=== PATIENT | female | born 1935 | race Caucasian/White ===

== ENCOUNTER 2020-12-10 02:34 | Inpatient (IN) | payer MEDICARE, OTHER ==
[~2020-12-10] VITALS: Ht 152.4 cm; Wt 77.3 kg
[2020-12-10 04:00] VITALS: BP 133/61
[2020-12-10 05:49] VITALS: BP 133/61
[2020-12-10] MEDS ORDERED: MAGNESIUM HYDROXIDE 30 ML UDC PO PRN (06:00)
[2020-12-10] MEDS ORDERED: ACETAMINOPHEN 325 MG TABLET PO PRN (06:00)
[2020-12-10] MEDS ORDERED: MAG HYDROX/AL HYDROX/SIMETH 30 ML UDC PO PRN (06:00)
[2020-12-10] MEDS ORDERED: HYDROCODONE/APAP 5/325MG TABLET PO PRN (06:00)
[2020-12-10] MEDS ORDERED: ONDANSETRON HCL/PF 4 MG/2 ML VIAL IVP PRN (06:00)
[2020-12-10] MEDS ORDERED: ZOLPIDEM TARTRATE 5 MG TABLET PO PRN (06:00)
[2020-12-10] MEDS ORDERED: MORPHINE SULFATE INJ 2 MG/ML DISP.SYRIN IV PRN (06:00)
[2020-12-10] MEDS ORDERED: Z GUARD REMEDY 2 OZ OINT TP PRN (06:00)
[2020-12-10] MEDS ORDERED: PANT40TA2 PO (06:15)
[2020-12-10] MEDS ORDERED: FURO20TA4 PO (06:15)
[2020-12-10] MEDS ORDERED: FERR325T30 PO (06:15)
[2020-12-10] MEDS ORDERED: HYDR10SY16 PO (06:15)
[2020-12-10] MEDS ORDERED: CARV25TA2 PO (06:15)
[2020-12-10] MEDS ORDERED: SEVE800T8 PO (06:15)
[2020-12-10] MEDS ORDERED: VIT1TABL46 PO (06:15)
[2020-12-10] MEDS ORDERED: AMLO-212 PO (06:15)
[2020-12-10] MEDS ORDERED: ATOR20TA PO (06:15)
[2020-12-10 06:54] LABS: BASOPHILS # (AUTO) 0.1 /CMM (0.0-0.2); BASOPHILS % (AUTO) 0.8 % (0.0-2.0); EOSINOPHILS % (AUTO) 1.6 % (0.0-6.0); HEMATOCRIT 30 % (33-45); HEMOGLOBIN 9.5 g/dL (11.5-14.8); LYMPHOCYTES # (AUTO) 0.9 /CMM (0.8-4.8); LYMPHOCYTES % (AUTO) 9.4 % (20.0-44.0); MEAN CORPUSCULAR HGB CONC 32 g/dl (31.0-36.0); MEAN CORPUSCULAR VOLUME 73 fL (82-100); MONOCYTES # (AUTO) 0.5 /CMM (0.1-1.30); MONOCYTES % (AUTO) 5.8 % (2.0-12.0); NEUTROPHILS # (AUTO) 7.7 /CMM (1.8-8.9); NEUTROPHILS % (AUTO) 82.4 % (43.0-81.0); PLATELET COUNT (AUTO) 131 /CMM (150-450); RED BLOOD CELL COUNT(AUTO) 4.08 MIL/uL (4.0-5.2); WHITE BLOOD COUNT (AUTO) 9.4 K/uL (4.3-11.0)
--- NOTE | 2020-12-10 06:55 | NUR ---
MS/TELE/RN RECEIVED PATIENT AT AROUND 044O BY AMBULANCE FROM [facility]. PATIENT WAS AWAKE, ALERT, ORIENTED, COMFORTABLE, NO C/O PAIN, NO DISTRESS NOTED, MADE COMFORTABLE IN BED, UNABLE TO OBTAIN INFORMATIONS FROM THE PATIENT DUE TO LANGUAGE BARRIER, PATIENT SPEAKS GHANAIAN ONLY. SON, SANTO, CALLED AROUND 0530, SOME INFORMATIONS WERE OBTAINED FROM THE SON. FALL PRECAUTIONS IMPLEMENTED PER PROTOCOL, PLACED CALL LIGHT WITHIN REACH. PATIENT IS SLEEPING AT THIS TIME, NO SIGNS OF DISTRESS NOTED, CALL NEEDS ATTENDED, WILL CONTINUE TO MONITOR.
[2020-12-10 07:30] LABS: CALCIUM, SERUM 8.8 mg/dL (8.5-10.1); CARBON DIOXIDE 23 mmol/L (21-32); CHLORIDE 106 mmol/L (98-107); CHOLESTEROL 133 mg/dL (<200); GLUCOSE 88 mg/dL (74-106); HDL CHOLESTEROL 73 mg/dL (40-60); LDL 54 mg/dL (0-99); POTASSIUM 4.7 mmol/L (3.5-5.1); SODIUM SERUM 139 mmol/L (136-145); TRIGLYCERIDES 115 mg/dL (30-150); UREA NITROGEN, BLOOD 54 mg/dL (7-18)
--- NOTE | 2020-12-10 07:30 | NUR ---
RN NOTES PATIENT IS IN BED A/O X 4 WITH NO SIGNS OF DISTRESS ON 2L OF NASAL CANNULA. IV L FA SL AND IV R FA SL. ON TELE MONITOR ON READING SR WITH PVC'S. DENIES CHEST PAIN. SAFETY MEASURES ARE APPLIED, CALL LIGHT WITHIN REACH, WILL CONTINUE TO MONITOR.
[2020-12-10 07:42] LABS: ALANINE AMINOTRANSFERASE 14 U/L (12-78); ALBUMIN 2.8 g/dL (3.4-5.0); ALKALINE PHOSPHATASE 53 U/L (46-116); ASPARTATE AMINOTRANSFERASE 19 U/L (15-37); B-TYPE NATRIURETIC PEPTIDE 3608 PG/ML (0-125); BILIRUBIN,TOTAL 0.5 mg/dL (0.2-1.0); MAGNESIUM 2.1 mg/dL (1.8-2.4); PHOSPHORUS 5.6 mg/dL (2.5-4.9); TOTAL PROTEIN, SERUM 6.6 g/dL (6.4-8.2)
[2020-12-10 08:00] VITALS: BP 140/69
[2020-12-10] MEDS: CARVEDILOL 12.5 MG TABLET PO SCH ×2 (11:34→21:15)
[2020-12-10] MEDS: SEVELAMER CARBONATE 800 MG TABLET PO SCH ×2 (13:04→16:52)
[2020-12-10 16:00] VITALS: BP 146/62
[2020-12-10 16:48] LABS: CREATININE, URINE 36.5 MG/DL (30.0-125.0); URINE TOTAL PROTEIN 255.5 mg/dL (0-11.9)
[2020-12-10] MEDS: FERROUS SULFATE (325 MG) 325 MG/TAB TABLET PO SCH (16:52)
[2020-12-10 17:18] LABS: BILIRUBIN,URINE NEGATIVE (NEGATIVE); COLOR,URINE YELLOW (YELLOW); LEUKOCYTE ESTERASE ,URINE NEGATIVE (NEGATIVE); NITRITE, URINE NEGATIVE (NEGATIVE); PROTEIN,URINE >=300 mg/dl (NEGATIVE); UGLUCOSE NEGATIVE (NEGATIVE); UROBILINOGEN,URINE 0.2 EU/dL (0.2)
[2020-12-10 17:24] LABS: BACTERIA,URINE 1+ /HPF (None Seen)
[2020-12-10 17:25] LABS: MUCUS,URINE Few /LPF (None Seen)
[2020-12-10 18:04] LABS: EOSINOPHIL,URINE None Seen
--- NOTE | 2020-12-10 18:53 | NUR ---
RN NOTES PATIENT IS IN BED A/O X 4 WITH NO SIGNS OF DISTRESS ON 2L OF NASAL CANNULA. IV L FA SL AND IV R FA SL. ON TELE MONITOR ON READING SR WITH PVC'S. DENIES CHEST PAIN. SAFETY MEASURES ARE APPLIED, CALL LIGHT WITHIN REACH, ALL TREATMENTS AND CARE WAS PERFORMED ANTICIPATED, WILL ENDORSE TO THE NEXT RIPSAW OPERATOR NURSE.
--- NOTE | 2020-12-10 19:10 | NUR ---
PHYSICIAN GYNECOLOGIST OPENING NOTES: RECEIVED PATIENT IN BED, AWAKE, A/O X3. NO S/S OF DISTRESS NOTED. BED ALARM ON. BED IN LOWEST AND LOCKED POSITION. CALL LIGHT WITHIN REACH. O2 AT 2L/MIN NASAL CANNULA. PATIENT REFUSED THE DVT PUMPS.
--- NOTE | 2020-12-10 19:54 | NUR ---
A FAMILY MEMBER AT THE BEDSIDE.
[2020-12-10 20:00] VITALS: BP 129/61
[2020-12-10] MEDS: ATORVASTATIN 10 MG TABLET PO SCH (21:15)
[2020-12-11] VITALS: BP 135/61
[2020-12-11 04:00] VITALS: BP 155/55
[2020-12-11 05:55] LABS: BASOPHILS # (AUTO) 0.1 /CMM (0.0-0.2); BASOPHILS % (AUTO) 1.1 % (0.0-2.0); EOSINOPHILS % (AUTO) 1.8 % (0.0-6.0); HEMATOCRIT 28 % (33-45); LYMPHOCYTES % (AUTO) 13.2 % (20.0-44.0); MEAN CORPUSCULAR HGB CONC 32 g/dl (31.0-36.0); MEAN CORPUSCULAR VOLUME 73 fL (82-100); MONOCYTES # (AUTO) 0.6 /CMM (0.1-1.30); MONOCYTES % (AUTO) 7.2 % (2.0-12.0); NEUTROPHILS % (AUTO) 76.7 % (43.0-81.0); PLATELET COUNT (AUTO) 115 /CMM (150-450); RED BLOOD CELL COUNT(AUTO) 3.86 MIL/uL (4.0-5.2); WHITE BLOOD COUNT (AUTO) 7.8 K/uL (4.3-11.0)
[2020-12-11 06:14] LABS: CALCIUM, SERUM 8.1 mg/dL (8.5-10.1); CARBON DIOXIDE 25 mmol/L (21-32); CHLORIDE 108 mmol/L (98-107); CREATININE 3.8 mg/dL (0.6-1.3); GLUCOSE 80 mg/dL (74-106); PHOSPHORUS 5.7 mg/dL (2.5-4.9); POTASSIUM 4.5 mmol/L (3.5-5.1); SODIUM SERUM 141 mmol/L (136-145); UREA NITROGEN, BLOOD 52 mg/dL (7-18)
--- NOTE | 2020-12-11 07:15 | NUR ---
CERTIFIED NURSE OPERATING ROOM OPENING NOTE RECEIVED PATIENT IN BED. A/O X4. KYRGYZ SPEAKING. AMBULATORY WITH STANDBY ASSIST. NC ON 2 LPM. NO SOB NOTED. IN NO APPARENT DISTRESS. DENIES ANY PAIN OR DISCOMFORT AT THIS TIME. IV ACCESS ON L FA #20 G AND R FA #20 G, INTACT. SAFETY MEASURES MAINTAINED. BED IN LOWEST POSITION, BRAKES LOCKED. SIDE RAILS UP X2. CALL LIGHT WITHIN REACH. WILL CONTINUE PLAN OF CARE.
--- NOTE | 2020-12-11 07:46 | NUR ---
WOUND CARE CONSULT: PT PRESENTS WITH INTACT SKIN AND IS ABLE TO REPOSITION IN BED. PT IS CONTINENT. WILL SEE PRN.
[2020-12-11 08:14] VITALS: BP 117/67
[2020-12-11] MEDS: FERROUS SULFATE (325 MG) 325 MG/TAB TABLET PO SCH ×2 (08:14→16:11)
[2020-12-11] MEDS: SEVELAMER CARBONATE 800 MG TABLET PO SCH ×3 (08:14→16:11)
[2020-12-11] MEDS: AMLODIPINE BESYLATE 5 MG TABLET PO SCH (08:14)
[2020-12-11] MEDS: VIT B CMPLX 3/FA/VIT C/BIOTIN 1 TAB TABLET PO SCH (08:14)
[2020-12-11] MEDS: CARVEDILOL 12.5 MG TABLET PO SCH ×2 (08:14→20:19)
[2020-12-11 08:59] LABS: IRON, SERUM 42 ug/dl (50-175); TOTAL IRON BINDING CAPACITY 176 ug/dl (250-450)
[2020-12-11 09:11] LABS: FERRITIN 432 ng/mL (8-388)
[2020-12-11] MEDS ORDERED: BUMETANIDE INJ 6 MG in IV NS 0.9% 36 ML IV ONE (09:30)
[2020-12-11 12:00] VITALS: BP 148/57
[2020-12-11 16:26] VITALS: BP 151/61
--- NOTE | 2020-12-11 18:09 | NUR ---
ZONE MANAGER CLOSING NOTE PATIENT RESTING IN BED. A/O X4. AMBULATORY WITH STANDBY ASSIST. NC ON 2 LPM. NO SOB NOTED. IN NO APPARENT DISTRESS. DENIES ANY PAIN OR DISCOMFORT AT THIS TIME. IV ACCESS ON L FA #20 G AND R FA #20 G, INTACT. ABLE TO MAKE NEEDS KNOWN. ALL DUE MEDS GIVEN ORDERED. SAFETY MEASURES MAINTAINED. BED IN LOWEST POSITION, BRAKES LOCKED. SIDE RAILS UP X2. CALL LIGHT WITHIN REACH. WILL ENDORSE CONTINUITY OF CARE TO ONCOMING SHIFT.
--- NOTE | 2020-12-11 19:15 | NUR ---
MEDICAL PRACTICE ADMINISTRATOR OPENING NOTES: RECEIVED PATIENT IN BED, AWAKE, A/O X4. NO S/S OF DISTRESS NOTED. NO COMPLAIN OF PAIN. CALL LIGHT WITHIN REACH. BED ALARM ON. BED IN LOWEST AND LOCKED POSITION. DVT PUMPS REFUSED, EXPLAINED TO THE PATIENT THE IMPORTANCE OF IT, STILL DECLINED.
[2020-12-11 20:00] VITALS: BP 152/65
[2020-12-11] MEDS: ATORVASTATIN 10 MG TABLET PO SCH (20:19)
[2020-12-12] VITALS: BP 156/58
[2020-12-12 04:00] VITALS: BP 145/51
--- NOTE | 2020-12-12 07:44 | NUR ---
MS/RN NOTE RECEIVED REPORT FROM RETIREMENT PLAN COUNSELOR NURSE. PATIENT SEEN LAYING IN HOSPITAL BED. A/O X4, SIERRA LEONEAN/BAHRAINI SPEAKING. NO ACUTE DISTRESS NOTED. PATIENT ON 2L OXYGEN VIA NASAL CANNULA, TOLERATING WELL, NO SOB NOTED, BREATHING EVEN NON LABORED. ALL SAFETY MEASURES IN PLACE, BED LOCKED AND IN LOWEST POSITION, CALL LIGHT WITHIN REACH. WILL CONTINUE TO MONITOR AND ENSURE SAFETY.
[2020-12-12 08:00] VITALS: BP 138/50
[2020-12-12 09:10] VITALS: BP 138/50
[2020-12-12] MEDS: AMLODIPINE BESYLATE 5 MG TABLET PO SCH (09:10)
[2020-12-12] MEDS: SEVELAMER CARBONATE 800 MG TABLET PO SCH (09:10)
[2020-12-12] MEDS: VIT B CMPLX 3/FA/VIT C/BIOTIN 1 TAB TABLET PO SCH (09:10)
[2020-12-12] MEDS: FERROUS SULFATE (325 MG) 325 MG/TAB TABLET PO SCH (09:10)
[2020-12-12] MEDS: CARVEDILOL 12.5 MG TABLET PO SCH (09:10)
[2020-12-12 09:30] LABS: BASOPHILS # (AUTO) 0.1 /CMM (0.0-0.2); BASOPHILS % (AUTO) 1.3 % (0.0-2.0); EOSINOPHILS % (AUTO) 1.9 % (0.0-6.0); HEMATOCRIT 27 % (33-45); HEMOGLOBIN 8.5 g/dL (11.5-14.8); LYMPHOCYTES # (AUTO) 0.9 /CMM (0.8-4.8); LYMPHOCYTES % (AUTO) 12.2 % (20.0-44.0); MEAN CORPUSCULAR HGB CONC 32 g/dl (31.0-36.0); MEAN CORPUSCULAR VOLUME 73 fL (82-100); MONOCYTES # (AUTO) 0.4 /CMM (0.1-1.30); NEUTROPHILS # (AUTO) 5.5 /CMM (1.8-8.9); NEUTROPHILS % (AUTO) 78.6 % (43.0-81.0); PLATELET COUNT (AUTO) 123 /CMM (150-450); RED BLOOD CELL COUNT(AUTO) 3.72 MIL/uL (4.0-5.2)
[2020-12-12 09:34] LABS: ABG OXYGEN SATURATION 93.2 % (92.0-98.5); ABG PCO2 44.8 mmHg (35.0-45.0); ABG PH 7.326 (7.350-7.450); ABG PO2 73.2 mmHg (75.0-100.0); AaDO2 22.9 mmHg; MetHb 0.7 % (0.0-1.5); O2Hb 92.5 % (94.0-97.0); SITE, ABG Right Radial; VENT MODE, BG room air
[2020-12-12 10:14] LABS: ALANINE AMINOTRANSFERASE 16 U/L (12-78); ALBUMIN 2.5 g/dL (3.4-5.0); ALKALINE PHOSPHATASE 52 U/L (46-116); ASPARTATE AMINOTRANSFERASE 14 U/L (15-37); BILIRUBIN,TOTAL 0.4 mg/dL (0.2-1.0); CALCIUM, SERUM 7.8 mg/dL (8.5-10.1); CARBON DIOXIDE 26 mmol/L (21-32); CHLORIDE 109 mmol/L (98-107); CREATININE 3.9 mg/dL (0.6-1.3); GLUCOSE 128 mg/dL (74-106); MAGNESIUM 1.7 mg/dL (1.8-2.4); PHOSPHORUS 5.3 mg/dL (2.5-4.9); POTASSIUM 3.7 mmol/L (3.5-5.1); SODIUM SERUM 144 mmol/L (136-145); UREA NITROGEN, BLOOD 54 mg/dL (7-18)
[2020-12-12] MEDS ORDERED: BUMETANIDE INJ 8 MG in IV NS 0.9% 48 ML IV ONE (10:30)
--- NOTE | 2020-12-12 12:40 | NUR ---
MS/RN DISCHARGED PATIENT WAS DISCHARGED TO HOME IN MEDICALLY STABLE CONDITION. NAME BAND AND IV (2) REMOVED, APPLIED PRESSURE DRESSING. ALL PERSONAL BELONGINGS ACCOUNTED AND SIGNED OFF FOR IN BELONGINGS LIST. EDUCATED PATIENT AND FAMILY MEMBER, GRANDSON SLOANE, OF EXIT CARE/DISCHARGE INSTRUCTIONS. COPY OF EXIT CARE/DISCHARGE PAPER WORK GIVEN TO PATIENT. PATIENT LEFT UNIT FLOOR VIA WHEELCHAIR TAKEN TO ENTRANCE BY CLOTH PACKER AND GRANDSON. PATIENT LEFT IN MEDICALLY STABLE CONDITION.
== END 2020-12-12 12:40 | disposition home or self-care (01) | DRG 302 ==
LOC: TELE 04:33
PROVIDERS: ADMIT Internal Medicine; ATTEND Internal Medicine
DX: I25.110 Atherosclerotic heart disease of native coronary artery with unstable angina pectoris (principal); I50.33 Acute on chronic diastolic (congestive) heart failure; N17.0 Acute kidney failure with tubular necrosis; J96.01 Acute respiratory failure with hypoxia; I13.0 Hypertensive heart and chronic kidney disease with heart failure and stage 1 through stage 4 chronic kidney disease, or unspecified chronic kidney disease; N10 Acute pyelonephritis; E78.00 Pure hypercholesterolemia, unspecified; E78.5 Hyperlipidemia, unspecified; N18.9 Chronic kidney disease, unspecified; D63.1 Anemia in chronic kidney disease; Z95.2 Presence of prosthetic heart valve; N28.1 Cyst of kidney, acquired; Z95.5 Presence of coronary angioplasty implant and graft; Z20.822 Contact with and (suspected) exposure to COVID-19
CPT/HCPCS: 36415; 36600; 71045-TC; 76770-TC; 80048-TC; 80053-TC; 80061-TC; 81001; 82570-TC; 82728-TC; 82803-TC; 83540-TC; 83735-TC; 83880; 84100-TC; 84155-TC; 84300-TC; 84484-TC; 85025-TC; 85730-TC; 87081-TC; 93307-TC; G0378; J3490; J7050

== ENCOUNTER 2021-01-05 20:21 | Inpatient (IN) | payer MEDICARE, OTHER ==
[~2021-01-05] VITALS: Ht 157.5 cm; Wt 60.8 kg
[~2021-01-05 20:21] MED LIST: AMLO-212 PO; ATOR20TA PO; CARV25TA2 PO; FERR325T30 PO; FURO20TA4 PO; HYDR10SY16 PO; PANT40TA2 PO; SEVE800T8 PO; VIT1TABL46 PO
--- NOTE | 2021-01-05 20:33 | NUR ---
BIBRA 82 C/O "SOB" HX PULMONARY EDEMA, ON ARRIVAL NOTED EPISODE OF COFEE GROUND EMESIS
[2021-01-05] MEDS ORDERED: ONDANSETRON HCL/PF 4 MG/2 ML VIAL ONE (20:37)
[2021-01-05] MEDS ORDERED: EZET10TA6 PO (20:39)
--- NOTE | 2021-01-05 20:43 | NUR ---
TECH AT BEDSIDE FOR US
--- NOTE | 2021-01-05 20:47 | NUR ---
COVID SWAB COLLECTED AND SENT TO LAB
[2021-01-05] MEDS ORDERED: ONDANSETRON HCL/PF - ER 4 MG/2 ML VIAL IV ONE (21:00)
--- NOTE | 2021-01-05 21:17 | NUR ---
SANTO (SON) [phone] NATI PETIT [phone]
--- NOTE | 2021-01-05 21:20 | NUR ---
CALL FROM LAB, RAPID COVID NEGATIVE.
[2021-01-05 21:28] LABS: BASOPHILS # (AUTO) 0.1 /CMM (0.0-0.2); EOSINOPHILS % (AUTO) 1.2 % (0.0-6.0); HEMATOCRIT 25 % (33-45); HEMOGLOBIN 7.8 g/dL (11.5-14.8); LYMPHOCYTES # (AUTO) 0.9 /CMM (0.8-4.8); LYMPHOCYTES % (AUTO) 9.2 % (20.0-44.0); MEAN CORPUSCULAR HGB CONC 31 g/dl (31.0-36.0); MEAN CORPUSCULAR VOLUME 71 fL (82-100); MONOCYTES # (AUTO) 0.7 /CMM (0.1-1.30); NEUTROPHILS % (AUTO) 81.6 % (43.0-81.0); PLATELET COUNT (AUTO) 119 /CMM (150-450); RED BLOOD CELL COUNT(AUTO) 3.49 MIL/uL (4.0-5.2); WHITE BLOOD COUNT (AUTO) 9.8 K/uL (4.3-11.0)
[2021-01-05 21:41] LABS: CALCIUM, SERUM 8.2 mg/dL (8.5-10.1); CARBON DIOXIDE 19 mmol/L (21-32); CHLORIDE 110 mmol/L (98-107); CREATININE 3.9 mg/dL (0.6-1.3); GLUCOSE 153 mg/dL (74-106); POTASSIUM 4.9 mmol/L (3.5-5.1); SODIUM SERUM 141 mmol/L (136-145); UREA NITROGEN, BLOOD 66 mg/dL (7-18)
[2021-01-05 21:53] LABS: ALANINE AMINOTRANSFERASE 19 U/L (12-78); ALKALINE PHOSPHATASE 62 U/L (46-116); ASPARTATE AMINOTRANSFERASE 16 U/L (15-37); B-TYPE NATRIURETIC PEPTIDE 4683 PG/ML (0-125); BILIRUBIN,DIRECT 0.2 mg/dL (0.0-0.2); BILIRUBIN,TOTAL 0.6 mg/dL (0.2-1.0); TOTAL PROTEIN, SERUM 6.8 g/dL (6.4-8.2)
[2021-01-05] MEDS ORDERED: FUROSEMIDE 40 MG/4 ML VIAL IV ONE (22:00)
[2021-01-05] MEDS: FUROSEMIDE 40 MG/4 ML VIAL IV ONE ×2 (22:18→22:19)
--- NOTE | 2021-01-05 22:19 | NUR ---
PT ASSIGNED TO 328-1
--- NOTE | 2021-01-05 22:26 | NUR ---
REPORT CALLED IN TO MINA MENDEZ
--- NOTE | 2021-01-05 22:36 | NUR ---
PT TRANSPORTED TO FLOOR
[2021-01-05] MEDS ORDERED: Z GUARD REMEDY 2 OZ OINT TP PRN (23:00)
[2021-01-05] MEDS ORDERED: ACETAMINOPHEN 325 MG TABLET PO PRN (23:00)
[2021-01-05] MEDS: SEVELAMER CARBONATE 800 MG TABLET PO SCH (23:00)
[2021-01-05] MEDS ORDERED: MAGNESIUM HYDROXIDE 30 ML UDC PO PRN (23:00)
[2021-01-05] MEDS ORDERED: ONDANSETRON HCL/PF 4 MG/2 ML VIAL IVP PRN (23:00)
[2021-01-05] MEDS ORDERED: HYDROCODONE/APAP 5/325MG TABLET PO PRN (23:00)
[2021-01-06] MEDS: ATORVASTATIN 10 MG TABLET PO SCH ×2 (00:05→21:54)
[2021-01-06] MEDS: CARVEDILOL 12.5 MG TABLET PO SCH ×3 (00:05→17:31)
[2021-01-06] MEDS: HEPARIN SODIUM, PORCINE 5000 UNITS/1 ML VIAL SQ SCH ×3 (00:12→21:53)
[2021-01-06 06:03] LABS: BASOPHILS % (AUTO) 0.7 % (0.0-2.0); EOSINOPHILS % (AUTO) 0.8 % (0.0-6.0); HEMATOCRIT 22 % (33-45); HEMOGLOBIN 7.1 g/dL (11.5-14.8); LYMPHOCYTES # (AUTO) 0.9 /CMM (0.8-4.8); LYMPHOCYTES % (AUTO) 12.9 % (20.0-44.0); MEAN CORPUSCULAR HGB CONC 32 g/dl (31.0-36.0); MEAN CORPUSCULAR VOLUME 71 fL (82-100); MONOCYTES # (AUTO) 0.6 /CMM (0.1-1.30); MONOCYTES % (AUTO) 8.6 % (2.0-12.0); NEUTROPHILS # (AUTO) 5.5 /CMM (1.8-8.9); PLATELET COUNT (AUTO) 89 /CMM (150-450); RED BLOOD CELL COUNT(AUTO) 3.14 MIL/uL (4.0-5.2); WHITE BLOOD COUNT (AUTO) 7.2 K/uL (4.3-11.0)
--- NOTE | 2021-01-06 06:17 | NUR ---
MS/TELE/RN PATIENT IS STILL SLEEPING, APPEAR COMFORTABLE, NO SIGNS OF DISTRESS NOTED, CALL LIGHT IN REACH, ALL NEEDS ATTENDED AT THIS TIME, WILL CONTINUE TO MONITOR.
[2021-01-06 07:10] LABS: CALCIUM, SERUM 8.2 mg/dL (8.5-10.1); CARBON DIOXIDE 18 mmol/L (21-32); CHLORIDE 112 mmol/L (98-107); GLUCOSE 88 mg/dL (74-106); MAGNESIUM 2.1 mg/dL (1.8-2.4); PHOSPHORUS 5.4 mg/dL (2.5-4.9); POTASSIUM 4.8 mmol/L (3.5-5.1); SODIUM SERUM 142 mmol/L (136-145); UREA NITROGEN, BLOOD 67 mg/dL (7-18)
[2021-01-06 07:20] LABS: CHOLESTEROL 116 mg/dL (<200); HDL CHOLESTEROL 69 mg/dL (40-60); LDL 43 mg/dL (0-99); TRIGLYCERIDES 65 mg/dL (30-150)
--- NOTE | 2021-01-06 07:58 | NUR ---
TELE/RN NOTES RECEIVED PATIENT IN BED, ALERT AND ORIENTED X3. ABLE TO MAKE NEEDS KNOWN. AMBULATORY WITH ASSIST. LAO SPEAKING. IV SITE LFA G#20 ON HEPLOCK. CURRENTLY ON OXYGEN VIA NASAL CANNULA AT 2 LPM. TELE MONITOR READING OF SB WITH HR OF 57. NO S/S OF DISTRESS AT THIS TIME. SAFETY PRECAUTIONS IN PLACE- BED ON LOWEST POSITION, SIDE RAILS UP X2, CALL LIGHTS WITHIN REACH. WILL CONTINUE TO MONITOR PATIENT.
[2021-01-06 08:00] VITALS: BP 135/51
[2021-01-06] MEDS: PANTOPRAZOLE 40 MG TABLET.DR PO SCH (08:58)
[2021-01-06] MEDS: VIT B CMPLX 3/FA/VIT C/BIOTIN 1 TAB TABLET PO SCH (08:58)
[2021-01-06] MEDS: EZETIMIBE 10 MG TABLET PO SCH (08:58)
[2021-01-06] MEDS: SEVELAMER CARBONATE 800 MG TABLET PO SCH ×3 (08:58→17:30)
[2021-01-06] MEDS: AMLODIPINE BESYLATE 5 MG TABLET PO SCH (08:59)
[2021-01-06] MEDS ORDERED: BUMETANIDE INJ 16 MG in IV NS 0.9% 16 ML IV ONE (09:00)
[2021-01-06] MEDS ORDERED: FERROUS SULFATE (325 MG) 325 MG/TAB TABLET PO SCH (09:00)
--- NOTE | 2021-01-06 09:15 | NUR ---
TELE/RN NOTES HGB 7.1 HCT 22 PLATELET 89 SANJEEV DUKE DNP WAS AWARE HEPARIN 5000 UNITS IS WITHHELD FOR NOW.
[2021-01-06 11:38] LABS: IRON, SERUM 21 ug/dl (50-175); TOTAL IRON BINDING CAPACITY 188 ug/dl (250-450)
[2021-01-06 12:07] LABS: ABG BASE EXCESS -7.9 mmol/L; ABG PCO2 43.5 mmHg (35.0-45.0); ABG PH 7.252 (7.350-7.450); AaDO2 61.3 mmHg; COHb 0.5 % (0.5-1.5); MetHb 0.7 % (0.0-1.5); O2Hb 93.9 % (94.0-97.0); SITE, ABG Right Radial; VENT MODE, BG nasal cannula
--- NOTE | 2021-01-06 12:27 | NUR ---
TELE/RN NOTES DR. BRICEÑO WAS AWARE WITH ABG RESULT NO NEW ORDER AT THIS TIME.
[2021-01-06 14:52] LABS: THYROID STIMULATING HORMONE 1.592 uIU/mL (0.358-3.74)
[2021-01-06 16:00] VITALS: BP 131/63
--- NOTE | 2021-01-06 18:59 | NUR ---
TELE/RN CLOSING NOTES PATIENT IS IN BED, ALERT AND ORIENTED X3. ABLE TO MAKE NEEDS KNOWN. AMBULATORY WITH ASSIST. MALAGASY SPEAKING. IV SITE LFA G#20 ON HEPLOCK. CURRENTLY ON OXYGEN VIA NASAL CANNULA AT 2 LPM. ON TELE MONITOR READING. NO S/S OF DISTRESS AT THIS TIME. ALL ORDERS VERIFIED AND CARRIED OUT. SAFETY PRECAUTIONS IN PLACE- BED ON LOWEST POSITION, SIDE RAILS UP X2, CALL LIGHTS WITHIN REACH. WILL ENDORSE TO THE NEXT SHIFT FOR CONTINUOUS MONITORING.
[2021-01-06 20:00] VITALS: BP 131/50
--- NOTE | 2021-01-06 20:48 | NUR ---
ARIA TELEPHONE ORDER SUPERVISOR CALL; NEW ORDERS; PT INFORMED OF TREATMENT PLAN. ARIA FOSS CALLED; TELEPHONE ORDER SUPERVISOR; INFOMRED OF PATIENT CURRENT CONDITION. STATES HE WROTE ORDERS. WANTS PATIENT TO HAVE STRICT I AND O'S AND WANTS FC TO BE PLACED FOR ACCURATE MEASUREMENT OF URINE OUTPUT. PATIENT INFORMED WITH ASSISTANCE OF TRANSLATION WITH SON WHOM IS AT THE BEDSIDE. PT IS IN AGREEMENT WITH PLAN.
--- NOTE | 2021-01-06 21:39 | NUR ---
bunch catheter inserted. by francheska silver assisted by azeem heller. pt tolerated procedure well. very clear urine produced onl 20 ml. sample collected and sent to lab as ordered.
[2021-01-07] VITALS: BP 128/55
[2021-01-07 00:45] LABS: BILIRUBIN,URINE NEGATIVE (NEGATIVE); COLOR,URINE YELLOW (YELLOW); LEUKOCYTE ESTERASE ,URINE NEGATIVE (NEGATIVE); NITRITE, URINE NEGATIVE (NEGATIVE); PH,URINE 5.5 (5.0-8.0); PROTEIN,URINE 100 mg/dl (NEGATIVE); UGLUCOSE NEGATIVE (NEGATIVE); UROBILINOGEN,URINE 0.2 EU/dL (0.2)
[2021-01-07 01:09] LABS: CREATININE, URINE 14.4 MG/DL (30.0-125.0); URINE TOTAL PROTEIN 106.3 mg/dL (0-11.9)
[2021-01-07 01:43] LABS: BACTERIA,URINE None seen /HPF (None Seen); SQUAMOUS EPITHELIAL CELL,UR Few /HPF (None Seen); WBC,URINE 0-2 /HPF (0-3)
[2021-01-07 01:44] LABS: URINE AMORPHOUS URATE Few /HPF (None Seen)
[2021-01-07 02:34] LABS: EOSINOPHIL,URINE None Seen
[2021-01-07 04:00] VITALS: BP 137/57
[2021-01-07 05:59] LABS: BASOPHILS # (AUTO) 0.1 /CMM (0.0-0.2); BASOPHILS % (AUTO) 0.8 % (0.0-2.0); EOSINOPHILS % (AUTO) 1.4 % (0.0-6.0); HEMATOCRIT 23 % (33-45); HEMOGLOBIN 7.1 g/dL (11.5-14.8); LYMPHOCYTES # (AUTO) 1.2 /CMM (0.8-4.8); LYMPHOCYTES % (AUTO) 15.6 % (20.0-44.0); MEAN CORPUSCULAR HGB CONC 31 g/dl (31.0-36.0); MEAN CORPUSCULAR VOLUME 72 fL (82-100); MONOCYTES # (AUTO) 0.6 /CMM (0.1-1.30); MONOCYTES % (AUTO) 8.1 % (2.0-12.0); NEUTROPHILS # (AUTO) 5.6 /CMM (1.8-8.9); NEUTROPHILS % (AUTO) 74.1 % (43.0-81.0); PLATELET COUNT (AUTO) 94 /CMM (150-450); RED BLOOD CELL COUNT(AUTO) 3.12 MIL/uL (4.0-5.2); WHITE BLOOD COUNT (AUTO) 7.5 K/uL (4.3-11.0)
[2021-01-07 06:24] LABS: CREATINE KINASE, TOTAL 58 U/L (26-192)
[2021-01-07 06:41] LABS: ALANINE AMINOTRANSFERASE 13 U/L (12-78); ALBUMIN 2.6 g/dL (3.4-5.0); ALKALINE PHOSPHATASE 55 U/L (46-116); ASPARTATE AMINOTRANSFERASE 13 U/L (15-37); BILIRUBIN,TOTAL 0.5 mg/dL (0.2-1.0); CALCIUM, SERUM 8.1 mg/dL (8.5-10.1); CARBON DIOXIDE 19 mmol/L (21-32); CHLORIDE 110 mmol/L (98-107); CREATININE 4.4 mg/dL (0.6-1.3); GLUCOSE 85 mg/dL (74-106); PHOSPHORUS 5.8 mg/dL (2.5-4.9); POTASSIUM 4.6 mmol/L (3.5-5.1); SODIUM SERUM 140 mmol/L (136-145); TOTAL PROTEIN, SERUM 6.2 g/dL (6.4-8.2); UREA NITROGEN, BLOOD 71 mg/dL (7-18)
[2021-01-07 08:02] VITALS: BP 135/60
--- NOTE | 2021-01-07 08:10 | NUR ---
TELE/RN NOTES RECEIVED PATIENT IN BED, ALERT AND ORIENTED X3. ABLE TO MAKE NEEDS KNOWN. AMBULATORY WITH ASSIST. BARBADIAN SPEAKING. IV SITE LFA G#20 ON HEPLOCK. CURRENTLY ON OXYGEN VIA NASAL CANNULA AT 2 LPM. ALSO HAVE ANDRES CATHETER IN PLACE DRAINING INTO A CLEAR AND YELLOW URINE. TELE MONITOR READING OF SR 61. NO S/S OF DISTRESS AT THIS TIME. SAFETY PRECAUTIONS IN PLACE- BED ON LOWEST POSITION, SIDE RAILS UP X2, CALL LIGHTS WITHIN REACH. WILL CONTINUE TO MONITOR PATIENT.
[2021-01-07] MEDS: EZETIMIBE 10 MG TABLET PO SCH (08:29)
[2021-01-07] MEDS: SEVELAMER CARBONATE 800 MG TABLET PO SCH ×3 (08:29→17:09)
[2021-01-07] MEDS: VIT B CMPLX 3/FA/VIT C/BIOTIN 1 TAB TABLET PO SCH (08:30)
[2021-01-07] MEDS: CARVEDILOL 12.5 MG TABLET PO SCH ×2 (08:30→17:09)
[2021-01-07] MEDS: AMLODIPINE BESYLATE 5 MG TABLET PO SCH (08:30)
[2021-01-07] MEDS: PANTOPRAZOLE 40 MG TABLET.DR PO SCH (08:30)
[2021-01-07] MEDS: HEPARIN SODIUM, PORCINE 5000 UNITS/1 ML VIAL SQ SCH ×2 (09:00→20:50)
--- NOTE | 2021-01-07 09:43 | NUR ---
HEPARIN 5,000 UNITS/1ML VIA IV PUSH WITHHELD DUE TO LAB RESULTS OF HGB 7.[address] DUKE NOTIFIED AND MADE AWARE. WILL CONTINUE TO MONITOR.
--- NOTE | 2021-01-07 10:26 | NUR ---
SON SANTO ([phone]) WANTED TO SPEAK TO THE HOSPITALIST. NOTIFIED DR. DUKE AND PROVIDED HIM WITH THE NUMBER AND HE ACKNOWLEDGED.
--- NOTE | 2021-01-07 10:46 | NUR ---
MS/RN NOTES PATIENT REFUSED DVT PUMP PLACEMENT. EXPLAINED THE RISK AND BENEFITS. WILL CONTINUE TO MONITOR.
[2021-01-07 11:11] LABS: ABG OXYGEN SATURATION 96.5 % (92.0-98.5); ABG PCO2 44.8 mmHg (35.0-45.0); ABG PH 7.259 (7.350-7.450); AaDO2 47.8 mmHg; COHb 0.5 % (0.5-1.5); MetHb 0.7 % (0.0-1.5); O2Hb 95.3 % (94.0-97.0); SITE, ABG Right Radial; VENT MODE, BG nasal cannula
--- NOTE | 2021-01-07 11:28 | NUR ---
ABG RESULT TODAY WAS SENT TO DR. BRICEÑO.
[2021-01-07] MEDS: SOD FERRIC GLUC 125 MG in IV NS 0.9% 100 ML IV SCH (14:07)
[2021-01-07 15:56] VITALS: BP 122/61
[2021-01-07] MEDS ORDERED: EPOETIN ALFA (20,000 UNIT) 20,000 UNIT/ML VIAL SQ ONE (16:00)
--- NOTE | 2021-01-07 16:58 | NUR ---
PATIENT IS NOW ON ROOM AIR, WITH AN O2 SAT OF 95%. TOLERATED WITHOUT OXYGEN MACHINE AND PATIENT REFUSE TO PUT IT ON. WILL CONTINUE TO MONITOR.
[2021-01-07] MEDS: CITRIC ACID/SODIUM CITRATE (BICITRA)15 ML UDC PO SCH ×2 (17:08→21:16)
--- NOTE | 2021-01-07 18:50 | NUR ---
MS/RN CLOSING NOTES PATIENT IN BED, ALERT AND ORIENTED X3. ABLE TO MAKE NEEDS KNOWN. AMBULATORY WITH ASSIST. MARTINIQUAIS SPEAKING. IV SITE LFA G#20 ON HEPLOCK. CURRENTLY ON ROOM AIR WITH O2 SAT AT 95%. ALSO HAVE ANDRES CATHETER IN PLACE DRAINING INTO A CLEAR AND YELLOW URINE. CHEST XRAY DONE. EPOGEN GIVEN X1. ON STRICT I&O, DAILY WEIGHTS. SAFETY PRECAUTIONS IN PLACE- BED ON LOWEST POSITION, SIDE RAILS UP X2, CALL LIGHTS WITHIN REACH. WILL ENDORSE TO THE NEXT SHIFT FOR CONTINUITY OF CARE.
[2021-01-07 20:00] VITALS: BP 138/86
--- NOTE | 2021-01-07 20:00 | NUR ---
MS RN OPENING NOTE RECEIVED PT AWAKE IN BED. A/O X3. PT IS LAO SPEAKING, ABLE TO MAKE NEEDS KNOWN. PT IS STABLE ON 2L O2 VIA NC, TOLERATING WELL. NO SOB NOTED. NO S/S OF RESPIRATORY DISTRESS. PT IS AMBULATORY WITH ASSIST. IV ACCESS IN LFA #20 HL. F/C INTACT AND DRAINING CLEAR YELLOW URINE. SAFETY PRECAUTIONS MAINTAINED. BED IN LOWEST LOCKED POSITION, HOB ELEVATED, SIDE RAILS UP X2. CALL LIGHT AND TABLE WITHIN REACH. WILL CONTINUE WITH PLAN OF CARE.
--- NOTE | 2021-01-07 20:50 | NUR ---
HELD HEPARIN 5000 UNITS D/T LOW H/H AND LOW PLT. DR BURDICK AWARE.
[2021-01-07] MEDS: ATORVASTATIN 10 MG TABLET PO SCH (21:16)
[2021-01-08 05:08] LABS: PTH, INTACT 239 pg/mL (15-65)
--- NOTE | 2021-01-08 06:19 | NUR ---
MS RN CLOSING NOTE PT IS AWAKE IN BED AT THIS TIME. A/O X3. PT IS ALBANIAN SPEAKING, ABLE TO MAKE NEEDS KNOWN. PT IS STABLE ON 2L O2 VIA NC, TOLERATING WELL. NO SOB NOTED. NO S/S OF RESPIRATORY DISTRESS. PT IS AMBULATORY WITH ASSIST. IV ACCESS IS INTACT, PATENT, AND FLUSHING WELL. F/C INTACT AND DRAINING CLEAR YELLOW URINE. SAFETY AND ASPIRATION PRECAUTIONS MAINTAINED AT ALL TIMES. BED IN LOWEST LOCKED POSITION, HOB ELEVATED, SIDE RAILS UP X2. CALL LIGHT AND TABLE WITHIN REACH. WILL ENDORSE TO ONCOMING NURSE FOR CONTINUITY OF CARE.
--- NOTE | 2021-01-08 06:30 | NUR ---
PREETI BLANCHARD ([phone]) CALLED AND UPDATED. WILL CONTINUE WITH PLAN OF CARE.
[2021-01-08 06:40] LABS: BASOPHILS # (AUTO) 0.1 /CMM (0.0-0.2); BASOPHILS % (AUTO) 0.5 % (0.0-2.0); EOSINOPHILS % (AUTO) 0.6 % (0.0-6.0); HEMATOCRIT 23 % (33-45); HEMOGLOBIN 7.4 g/dL (11.5-14.8); LYMPHOCYTES # (AUTO) 0.9 /CMM (0.8-4.8); LYMPHOCYTES % (AUTO) 9.2 % (20.0-44.0); MEAN CORPUSCULAR HGB CONC 32 g/dl (31.0-36.0); MEAN CORPUSCULAR VOLUME 71 fL (82-100); MONOCYTES # (AUTO) 0.6 /CMM (0.1-1.30); MONOCYTES % (AUTO) 6.7 % (2.0-12.0); NEUTROPHILS # (AUTO) 7.8 /CMM (1.8-8.9); PLATELET COUNT (AUTO) 100 /CMM (150-450); RED BLOOD CELL COUNT(AUTO) 3.29 MIL/uL (4.0-5.2); WHITE BLOOD COUNT (AUTO) 9.5 K/uL (4.3-11.0)
[2021-01-08 07:00] LABS: ALANINE AMINOTRANSFERASE 15 U/L (12-78); ALBUMIN 2.6 g/dL (3.4-5.0); ALKALINE PHOSPHATASE 52 U/L (46-116); ASPARTATE AMINOTRANSFERASE 12 U/L (15-37); BILIRUBIN,TOTAL 0.6 mg/dL (0.2-1.0); CALCIUM, SERUM 8.3 mg/dL (8.5-10.1); CARBON DIOXIDE 21 mmol/L (21-32); CHLORIDE 109 mmol/L (98-107); CREATININE 4.6 mg/dL (0.6-1.3); GLUCOSE 84 mg/dL (74-106); MAGNESIUM 1.8 mg/dL (1.8-2.4); PHOSPHORUS 5.6 mg/dL (2.5-4.9); POTASSIUM 4.3 mmol/L (3.5-5.1); SODIUM SERUM 142 mmol/L (136-145); TOTAL PROTEIN, SERUM 6.2 g/dL (6.4-8.2); UREA NITROGEN, BLOOD 76 mg/dL (7-18)
--- NOTE | 2021-01-08 07:59 | NUR ---
Patient is sleeping at this time but easy to wake with touch and voice. A&Ox3. No patient concerns at this time. No signs of distress. Will continue to monitor.
[2021-01-08 08:06] LABS: COMPLEMENT C4, SERUM 31 mg/dL (12-38)
[2021-01-08 08:08] VITALS: BP 136/52
[2021-01-08] MEDS: EZETIMIBE 10 MG TABLET PO SCH (08:53)
[2021-01-08] MEDS: SEVELAMER CARBONATE 800 MG TABLET PO SCH ×2 (08:54→14:00)
[2021-01-08] MEDS: AMLODIPINE BESYLATE 5 MG TABLET PO SCH (08:54)
[2021-01-08] MEDS: PANTOPRAZOLE 40 MG TABLET.DR PO SCH (08:55)
[2021-01-08] MEDS: VIT B CMPLX 3/FA/VIT C/BIOTIN 1 TAB TABLET PO SCH (08:55)
[2021-01-08] MEDS: CITRIC ACID/SODIUM CITRATE (BICITRA)15 ML UDC PO SCH ×2 (08:55→14:00)
[2021-01-08] MEDS: CARVEDILOL 12.5 MG TABLET PO SCH (08:55)
[2021-01-08] MEDS: HEPARIN SODIUM, PORCINE 5000 UNITS/1 ML VIAL SQ SCH (09:00)
[2021-01-08 09:07] LABS: *ANA ANTI-CENTROMERE B AB <0.2 AI (0.0-0.9); *ANA ANTI-DNA(DS) AB, QN 1 IU/mL (0-9); *ANA ANTI-JO-1 <0.2 AI (0.0-0.9); *ANA ANTICHROMATIN ANTIBODY <0.2 AI (0.0-0.9); *ANA RNP ANTIBODIES 0.9 AI (0.0-0.9); *ANA SJOGREN'S ANTI-SS-A <0.2 AI (0.0-0.9); *ANA SJOGREN'S ANTI-SS-B <0.2 AI (0.0-0.9); *ANAANTI-SCLERODERMA-70 AB <0.2 AI (0.0-0.9); *ANASMITH AB <0.2 AI (0.0-0.9); *SPE A/G RATIO 1.2 (0.7-1.7); *SPE ALBUMIN 2.9 g/dL (2.9-4.4); *SPE ALPHA-1-GLOBULIN 0.3 g/dL (0.0-0.4); *SPE ALPHA-2-GLOBULIN 0.9 g/dL (0.4-1.0); *SPE BETA GLOBULIN 0.7 g/dL (0.7-1.3); *SPE GLOBULIN, TOTAL 2.5 g/dL (2.2-3.9); *SPE M-SPIKE Not Observed g/dL (Not Observed); *SPEGAMMA GLOBULIN 0.6 g/dL (0.4-1.8)
--- NOTE | 2021-01-08 09:50 | NUR ---
Heparin held due to low H&H labs
[2021-01-08 10:07] LABS: *ANA ANTI-CENTROMERE B AB <0.2 AI (0.0-0.9); *ANA ANTI-DNA(DS) AB, QN 1 IU/mL (0-9); *ANA ANTI-JO-1 <0.2 AI (0.0-0.9); *ANA ANTICHROMATIN ANTIBODY <0.2 AI (0.0-0.9); *ANA SJOGREN'S ANTI-SS-A <0.2 AI (0.0-0.9); *ANA SJOGREN'S ANTI-SS-B <0.2 AI (0.0-0.9); *ANAANTI-SCLERODERMA-70 AB <0.2 AI (0.0-0.9); *ANASMITH AB <0.2 AI (0.0-0.9)
[2021-01-08] MEDS: SOD FERRIC GLUC 125 MG in IV NS 0.9% 100 ML IV SCH (14:25)
[2021-01-08] MEDS ORDERED: CITR15SO PO (14:49)
[2021-01-08 15:56] VITALS: BP 139/51
--- NOTE | 2021-01-08 17:00 | NUR ---
Patient was discharged home with family in stable condition at 1645. Escorted to car by nursing staff, with grandson driving her home. Educated patient regarding diagnosis, new medication, and correlating diet. Information translated to patient by grandson in room. No c/o pain or discomfort upon discharge. IV removed and wristbands removed. Coley was taken out and patient was able to void on her own prior to d/c.
[2021-01-09 03:07] LABS: COMPLEMENT C3, SERUM 117 mg/dL (82-167)
[2021-01-10 16:07] LABS: *ANCANTIMYELOPEROXIDASE (MPO) <9.0 U/mL (0.0-9.0); *ANCANTIPROTEINASE 3 (PR-3) AB <3.5 U/mL (0.0-3.5)
[2021-01-12 13:07] LABS: *ANCA ATYPICAL p-ANCA <1:20 titer (Neg:<1:20); *ANCA CYTOPLASMIC (C-ANCA) <1:20 titer (Neg:<1:20); *ANCA PERINUCLEAR (P-ANCA) <1:20 titer (Neg:<1:20)
== END 2021-01-08 16:55 | disposition home or self-care (01) | DRG 291 ==
LOC: ER 20:23 → TELE 22:20 → MED 01-07 10:48
PROVIDERS: ADMIT Nurse Practitioner Acute Care; ATTEND Nurse Practitioner Acute Care
DX: I13.0 Hypertensive heart and chronic kidney disease with heart failure and stage 1 through stage 4 chronic kidney disease, or unspecified chronic kidney disease (principal); I50.33 Acute on chronic diastolic (congestive) heart failure; N17.0 Acute kidney failure with tubular necrosis; J96.01 Acute respiratory failure with hypoxia; E44.0 Moderate protein-calorie malnutrition; E87.4 Mixed disorder of acid-base balance; N18.9 Chronic kidney disease, unspecified; Z20.822 Contact with and (suspected) exposure to COVID-19; Z79.899 Other long term (current) drug therapy; D63.1 Anemia in chronic kidney disease; E11.22 Type 2 diabetes mellitus with diabetic chronic kidney disease; E78.5 Hyperlipidemia, unspecified; I25.10 Atherosclerotic heart disease of native coronary artery without angina pectoris; M89.9 Disorder of bone, unspecified; N28.1 Cyst of kidney, acquired; Z95.2 Presence of prosthetic heart valve
CPT/HCPCS: 36415; 36600; 71045-TC; 76770-TC; 80048-TC; 80053-TC; 80061-TC; 80076-TC; 81001; 82550-TC; 82570-TC; 82803-TC; 83520; 83540-TC; 83735-TC; 83880; 83970; 84100-TC; 84155; 84155-TC; 84165; 84300-TC; 84439-TC; 84443-TC; 84484-TC; 85025-TC; 85652-TC; 85730-TC; 86225; 86235; 86256; 86706; 86803; 87081-TC; 87340; 93970-TC; 94799-TC; C9803; G0378; J0885; J1644; J1940; J2405; J2916; J3490; J7030; J7050

== ENCOUNTER 2022-07-28 07:08 | Outpatient (CLI) | payer MEDICARE, OTHER ==
[~2022-07-28 07:08] MED LIST changes: +CITR15SO PO; +EZET10TA16 PO
== END 2022-07-28 23:59 | disposition home or self-care (01) ==
LOC: LAB 07:08
PROVIDERS: ATTEND Surgery Vascular Surgery
DX: Z01.812 Encounter for preprocedural laboratory examination (principal); Z20.822 Contact with and (suspected) exposure to COVID-19
CPT/HCPCS: U0003; C9803

== ENCOUNTER 2022-08-05 10:14 | Inpatient (IN) | payer MEDICARE, OTHER ==
[~2022-08-05] VITALS: Ht 154.9 cm; Wt 53.1 kg
[~2022-08-05 10:14] MED LIST changes: +ANESTHESIA TRAY IN PYXIS 1 EA TRAY MC ONE; +LIDOCAINE HCL/MPF 1% 30 ML VIAL IJ ONE
[2022-08-05 12:16] LABS: EOSINOPHILS % (AUTO) 3.3 % (0.0-6.0); HEMOGLOBIN 12.4 g/dL (11.5-14.8); LYMPHOCYTES # (AUTO) 1.1 K/uL (0.8-4.8); NEUTROPHILS # (AUTO) 3.1 K/uL (1.8-8.9)
[2022-08-05 12:21] LABS: ALANINE AMINOTRANSFERASE 10 U/L (12-78); ALBUMIN 3.5 g/dL (3.4-5.0); ALKALINE PHOSPHATASE 48 U/L (46-116); ASPARTATE AMINOTRANSFERASE 19 U/L (15-37); BILIRUBIN,TOTAL 0.6 mg/dL (0.2-1.0); CALCIUM, SERUM 8.5 mg/dL (8.5-10.1); CARBON DIOXIDE 28 mmol/L (21-32); CHLORIDE 100 mmol/L (98-107); GLUCOSE 103 mg/dL (74-106); POTASSIUM 5.4 mmol/L (3.5-5.1); SODIUM SERUM 134 mmol/L (136-145); TOTAL PROTEIN, SERUM 7.5 g/dL (6.4-8.2); UREA NITROGEN, BLOOD 62 mg/dL (7-18)
[2022-08-05] MEDS ORDERED: FENTANYL PF 100MCG/2ML AMPUL ONE (12:32)
[2022-08-05 12:58] LABS: BASOPHILS # (AUTO) 0.1 K/uL (0.0-0.2); BASOPHILS % (AUTO) 1.1 % (0.0-2.0); HEMATOCRIT 40 % (33-45); LYMPHOCYTES % (AUTO) 22.4 % (20.0-44.0); MEAN CORPUSCULAR HGB CONC 31 g/dl (31.0-36.0); MEAN CORPUSCULAR VOLUME 73 fL (82-100); MONOCYTES # (AUTO) 0.4 K/uL (0.1-1.30); MONOCYTES % (AUTO) 8.4 % (2.0-12.0); NEUTROPHILS % (AUTO) 64.8 % (43.0-81.0); PLATELET COUNT (AUTO) 91 K/uL (150-450); RED BLOOD CELL COUNT(AUTO) 5.54 MIL/uL (4.0-5.2); WHITE BLOOD COUNT (AUTO) 4.8 K/uL (4.3-11.0)
[2022-08-05] MEDS ORDERED: IOHEXOL 0 ML IV ONE (13:35)
[2022-08-05] MEDS ORDERED: LIDOCAINE HCL/MPF 1% 30 ML VIAL IJ ONE (13:35)
[2022-08-05] MEDS ORDERED: HEPARIN SODIUM, PORCINE 1,000 UNIT/ML VIAL ONE (13:35)
[2022-08-05] MEDS ORDERED: BACITRACIN ZINC OINT PACKET 1 EA PACKET TP ONE (14:27)
[2022-08-05] MEDS ORDERED: VANCOMYCIN POST DIALYSIS 500MG IV PRN ×2 (15:00)
[2022-08-05] MEDS ORDERED: HYDROMORPHONE 1 MG/1 ML DISP.SYRIN ONE (15:02)
--- NOTE | 2022-08-05 15:30 | NUR ---
RN NOTE PATIENT BROUGHT BACK TO UNIT @ 1520 FROM SURGICAL PROCEDURE OF RIGHT UPPER CHEST FISTULA PLACEMENT. STABLE AND ABLE TO VERBALIZE NEEDS. WILL CONTINUE TO MONITOR.
--- NOTE | 2022-08-05 18:23 | NUR ---
RN CLOSING NOTE PATIENT PATIENT ADMITTED TO UNIT FROM DAY SURGERY PROCEDURE @ 1520- PLACEMENT OF RIGHT UPPER CHEST FISTULA. PATIENT TOLERATED PROCEDURE WELL. IV ACCESS TO RIGHT WRIST INTACT AND PATENT AT THIS TIME. PATIENT TOLERATED DINNER WELL. PATIENT ON DIALYSIS SCHEDULE; DR. ORDOÑEZ CONTACTED FOR NEPHRO CONSULT. A/OX3-4 AND ABLE TO VERBALIZE NEEDS. NO S/SX OF DISTRESS AND NO C/O PAIN AT THIS TIME. SAFETY PRECAUTIONS IN PLACE AT THIS TIME WITH BED LOW AND LOCKED. SIDE RAIL UPX2, CALL LIGHT WITHIN REACH. WILL CONT TO MONITOR.
[2022-08-05] MEDS ORDERED: ACETAMINOPHEN 325 MG TABLET PO PRN (19:00)
[2022-08-05] MEDS ORDERED: ONDANSETRON HCL/PF 4 MG/2 ML VIAL IVP PRN (19:00)
[2022-08-05 19:26] VITALS: BP 186/82
--- NOTE | 2022-08-05 19:30 | NUR ---
MS RN OPENING NOTES RECEIVED PATIENT LAYING IN BED AWAKE, GRANDSON ON BEDSIDE. A/O X4. BREATHING EVEN AND NON-LABORED ON ROOM AIR. NOT IN APPARENT DISTRESS. NO PAIN OR DISCOMFORT NOTED. HAS RIGHT WRIST IV ACCESS #20G AND SALINE LOCKED. NO S/S OF INFILTRATION NOTED. HAS RIGHT IJ HD CATH. BLOOD NOTED IN DRESSING. PATIENT REFUSED DVT PUMPS. SAFETY PRECAUTIONS IN PLACE: BED LOW AND LOCKED, SIDE RAILS UP X2, CALL LIGHT WITHIN REACH.
[2022-08-05 20:00] VITALS: BP 216/84
--- NOTE | 2022-08-05 20:24 | NUR ---
MS MENDEZ NOTES PATIENT'S BP ARE 216/84 AND 222/88. NOTIFIED HOSPITALIST LEXI DOLAN AND ORDERED HYDRALAZINE 10MG IV Q6H PRN FOR SBP >150. NOTED AND CARRIED OUT. Addendum: 08/05/22 at 2030 by January HELEN MENDEZ PER CONVEYOR MAINTENANCE MECHANIC JAY, DO NOT GIVE HYDRALAZINE SINCE HE WILL START HD NOW. Addendum: 08/06/22 at 0145 by January HELEN MENDEZ PRN HYDRALAZINE 10MG GIVEN AFTER 1HR OF HD. BP 186/73
[2022-08-05] MEDS: CITRIC ACID/SODIUM CITRATE (BICITRA)15 ML UDC PO SCH (21:53)
[2022-08-05] MEDS: hydrALAZINE HCL IV 20 MG VIAL IV PRN (22:00)
[2022-08-05] MEDS ORDERED: ATORVASTATIN 10 MG TABLET PO SCH (22:00)
[2022-08-05] MEDS ORDERED: hydrOXYzine 10 MG TABLET PO SCH (22:00)
[2022-08-05 22:25] LABS: LYMPHOCYTES % (MANUAL) 24 % (16-48); MONOCYTES % (MANUAL) 3 % (0-11.0); NEUTROPHILS % (MANUAL) 73 (42-76)
--- NOTE | 2022-08-05 23:00 | NUR ---
MS RN NOTES HD STARTED AT 2039 AND ENDED AT 2239. 2L OUT
[2022-08-05 23:30] VITALS: BP 163/72
[2022-08-06] VITALS: BP 163/72
[2022-08-06] MEDS ORDERED: VANCOMYCIN 1 GM VIAL ONE (00:53)
--- NOTE | 2022-08-06 01:10 | NUR ---
MS RN NOTES SPOKE W/ MILTON FROM [facility] AND ASKED IF WE WILL GIVE 500MG OR 1G OF VANCO SINCE TROUGH IS 6L. FOLLOW THE DOSAGE IN EMAR, 500MG.
[2022-08-06 04:00] VITALS: BP 200/75
[2022-08-06] MEDS: hydrALAZINE HCL IV 20 MG VIAL IV PRN (04:03)
--- NOTE | 2022-08-06 04:10 | NUR ---
MS RN NOTES PATIENT C/O MILD PAIN ON THE HD CATHETER SITE SPECIALLY WHEN SHE MOVES HER ARM. ADVISED TO NOT PUT PRESSURE ON IT AND GAVE PRN TYLENOL.
[2022-08-06 05:37] VITALS: BP 159/56
--- NOTE | 2022-08-06 06:41 | NUR ---
MS RN CLOSING NOTES PATIENT LAYING IN BED ASLEEP, EASY TO AROUSE. ABLE TO VERBALIZE NEEDS. STABLE THROUGHOUT THE SHIFT. AFEBRILE. RIGHT WRIST IV ACCESS #20G INTACT, PATENT AND FLUSHING. RIGHT IJ HD CATHETER DRESSING REPLACED BY HD RN, C/D/I. AMBULATORY WITH STEADY GAIT. ALL DUE MEDS GIVEN AND NEEDS ATTENDED. SAFETY PRECAUTIONS MAINTAINED. WILL ENDORSE TO NEXT SHIFT FOR CHAYA.
--- NOTE | 2022-08-06 07:00 | NUR ---
MS RN OPENING NOTES; RECEIVED PT IN BED ASLEEP, ALERT AND ORIENTED X 4, NO SOB OR CARDIAC DISTRESS NOTED. DENIES PAIN AT THIS TIME.NOTED WITH R IJ CATH. NOTED WITH IV ACCESS ON R WRIST GAUGE20 PATENT INTACT AND SL. SAFETY MEASURES MAINTAINED; BED LOCKED AND IN LOWEST POSITION, SIDE RAILS UP X 2. CALL LIGHT IN EASY REACH FOR HELP. WILL MONITOR PT ACCORDINGLY.
[2022-08-06 08:00] VITALS: BP 178/62
[2022-08-06] MEDS ORDERED: SEVELAMER CARBONATE 800 MG TABLET PO SCH (08:00)
[2022-08-06] MEDS: CITRIC ACID/SODIUM CITRATE (BICITRA)15 ML UDC PO SCH (08:45)
[2022-08-06 08:46] VITALS: BP 190/80
[2022-08-06 08:51] LABS: CARBON DIOXIDE 26 mmol/L (21-32); CHLORIDE 104 mmol/L (98-107); CREATININE 5.1 mg/dL (0.6-1.3); GLUCOSE 82 mg/dL (74-106); POTASSIUM 5.2 mmol/L (3.5-5.1); SODIUM SERUM 139 mmol/L (136-145); UREA NITROGEN, BLOOD 51 mg/dL (7-18)
[2022-08-06 08:57] LABS: CALCIUM, SERUM 8.2 mg/dL (8.5-10.1)
[2022-08-06] MEDS ORDERED: PANTOPRAZOLE 40 MG TABLET.DR PO SCH (09:00)
[2022-08-06] MEDS ORDERED: AMLODIPINE BESYLATE 5 MG TABLET PO SCH (09:00)
[2022-08-06] MEDS ORDERED: FERROUS SULFATE (325 MG) 325 MG/TAB TABLET PO SCH (09:00)
[2022-08-06] MEDS ORDERED: CARVEDILOL 12.5 MG TABLET PO SCH (09:00)
[2022-08-06] MEDS ORDERED: VIT B CMPLX 3/FA/VIT C/BIOTIN 1 TAB TABLET PO SCH (09:00)
[2022-08-06] MEDS ORDERED: EZETIMIBE 10 MG TABLET PO SCH (09:00)
--- NOTE | 2022-08-06 11:00 | NUR ---
RN NOTES; PATIENT'S SON SANTO WANTED PATIENT TO DC HOME AND NOT TO PROCEED SCHEDULED/STAT HD,RN EXPLAINED THE RISK AND BENEFITS OF NOT HAVING SCHEDULED/ORDERED HD. SON VERBALIZED UNDERSTANDING, INFORMED DR PAZ AND ORDERED FOR DC AND FOLLOW WITH NEPHRO,PCP AND HD ON MONDAY. ALL ORDERS NOTED AND INFORMED SON.
[2022-08-06] MEDS ORDERED: VANCOMYCIN 1 GM in IV D5W 250 ML IV PRN (12:00)
--- NOTE | 2022-08-06 12:36 | NUR ---
S3B MULTI SENSOR OPERATOR NOTES; PATIENT DC HOME ACCOMPANIED BY SON SANTO. PT ALERT AND ORIENTED X 3 WITH EPISODES OF FORGETFULNESS AND NEEDS FREQUENT REORIENTATION. NO SOB OR CARDIAC DISTRESS NOTED, DENIES ANY PAIN AT THIS TIME. DISCHARGE INSTRUCTIONS/PACKET GIVEN TO PATIENT AND SON AND VERBALIZED UNDERSTANDING. IV ACCESS REMOVED AND COVERED WITH GAUZE SECURED TAPE AND PT TOLERATED WELL. IDENTIFICATION REMOVED. PT LEFT THE UNIT STABLE AND ORLY MEMBRENO ACCOMPANIED PT IN THE LOBBY WITH SON.
[2022-08-07] MEDS ORDERED: FUROSEMIDE 20 MG TABLET PO SCH (09:00)
== END 2022-08-06 12:30 | disposition home or self-care (01) | DRG 291 ==
LOC: DS 10:14 → MED 10:16
PROC: 0J2SXYZ Change Other Device in Head and Neck Subcutaneous Tissue and Fascia, External Approach (ICD-10-PCS; principal; 2022-08-05)
PROC: 5A1D70Z Performance of Urinary Filtration, Intermittent, Less than 6 Hours Per Day (ICD-10-PCS; 2022-08-05)
DX: I13.2 Hypertensive heart and chronic kidney disease with heart failure and with stage 5 chronic kidney disease, or end stage renal disease (principal); N18.6 End stage renal disease; Z99.2 Dependence on renal dialysis; E78.5 Hyperlipidemia, unspecified; I50.9 Heart failure, unspecified; I25.10 Atherosclerotic heart disease of native coronary artery without angina pectoris; Z79.899 Other long term (current) drug therapy; E87.5 Hyperkalemia; D50.9 Iron deficiency anemia, unspecified; D69.6 Thrombocytopenia, unspecified
CPT/HCPCS: 36415; 71045-TC; 80048-TC; 80053-TC; 80202-TC; 85025-TC; 85610-TC; 85730-TC; 86706; 87081-TC; 87340; 90935-TC; C1750; G0378; J0360; J0690; J1100; J1170; J1644; J2405; J2704; J3010; J3370; J3490; J7030; J7050; J7060; Q0177; Q9967

== ENCOUNTER 2022-09-19 06:35 | Outpatient (CLI) | payer MEDICARE, OTHER ==
[~2022-09-19 06:35] MED LIST changes: -ANESTHESIA TRAY IN PYXIS 1 EA TRAY MC ONE; -LIDOCAINE HCL/MPF 1% 30 ML VIAL IJ ONE
== END 2022-09-19 23:59 | disposition home or self-care (01) ==
LOC: LAB 06:35
PROVIDERS: ATTEND Surgery Vascular Surgery
DX: Z75.3 Unavailability and inaccessibility of health-care facilities (principal)